=== PATIENT | female | born 1990 | race Two or more races ===

== ENCOUNTER 2020-04-02 00:13 | Emergency (ER) | payer MEDICAID, OTHER ==
[~2020-04-02] VITALS: Ht 162.6 cm; Wt 95.7 kg
[2020-04-02 01:29] LABS: Urine Bacteria NONE SEEN /hpf (None Seen); Urine Blood Negative /uL (Negative); Urine Mucus FEW (None Seen); Urine Specific Gravity 1.034 (1.001-1.035); Urine WBC 7 /hpf (0 - 5)
[2020-04-02 03:59] LABS: Basophils # (auto) 0 10 ^3/uL (0-0.2); Basophils % (auto) 0.3 % (0.0-2.0); Eosinophils # (auto) 0 10 ^3/uL (0-0.8); Eosinophils % (auto) 0.3 % (0.0-7.0); Hematocrit 41.9 % (36.0-46.0); Hemoglobin 13.8 g/dL (12.2-16.2); Lymphocytes # (auto) 0.9 10 ^3/uL (0.4-5.4); Lymphocytes % (auto) 9.9 % (10.0-50.0); Mean Corpuscular Hemoglobin 29.4 pg (28.0-32.0); Mean Corpuscular Volume 89.1 fL (80.0-100.0); Monocytes # (auto) 0.2 10 ^3/uL (0-1.3); Monocytes % (auto) 2.7 % (0.0-12.0); Neutrophils # (auto) 7.7 10 ^3/uL (1.6-8.6); Neutrophils % (auto) 86.8 % (37.0-80.0); Platelet Count (auto) 263 10^3/uL (140-450); Red Cell Distribution Width 14.6 % (11.8-14.3); White Blood Cell 8.9 10^3/uL (4.4-10.8)
[2020-04-02 04:00] VITALS: BP 93/52
[2020-04-02 04:18] LABS: Albumin 4.1 g/dL (3.4-5.0); Calcium 8.9 mg/dL (8.5-10.1); Potassium 3.9 mmol/L (3.5-5.1)
[2020-04-02 04:21] LABS: BUN/Creatinine Ratio 9.9; Bilirubin, Total 0.5 mg/dL (0.2-1.0); Total Protein 7.9 g/dL (6.4-8.2)
== END 2020-04-02 06:30 | disposition home or self-care (01) ==
LOC: ER 00:13
DX: N39.0 Urinary tract infection, site not specified (principal); Z32.02 Encounter for pregnancy test, result negative
CPT/HCPCS: 36415; 80053; 81001; 81025; 82150; 83690; 85025

== ENCOUNTER 2020-04-25 19:16 | Emergency (ER) | payer MEDICAID ==
[~2020-04-25] VITALS: Ht 162.6 cm; Wt 101.2 kg
[2020-04-25 20:16] LABS: Urine Bacteria FEW /hpf (None Seen); Urine Blood Negative /uL (Negative); Urine Mucus FEW (None Seen); Urine Specific Gravity 1.024 (1.001-1.035); Urine WBC 13 /hpf (0 - 5)
[2020-04-25 21:57] VITALS: BP 120/72
[2020-04-25] MEDS: cefTRIAXone SOD 1,000 MG VL IM ONE (23:15)
== END 2020-04-25 23:19 | disposition home or self-care (01) ==
LOC: ER 19:17
DX: N39.0 Urinary tract infection, site not specified (principal); R33.9 Retention of urine, unspecified; R10.30 Lower abdominal pain, unspecified
CPT/HCPCS: 81001; 81025; 96372; 99283; J0696

== ENCOUNTER 2020-05-13 18:07 | Emergency (ER) | payer MEDICAID ==
[~2020-05-13] VITALS: Ht 162.6 cm; Wt 95.7 kg
[2020-05-13 18:55] LABS: Basophils # (auto) 0.1 10 ^3/uL (0-0.2); Eosinophils # (auto) 0.2 10 ^3/uL (0-0.8); Eosinophils % (auto) 2.1 % (0.0-7.0); Hematocrit 44.5 % (36.0-46.0); Hemoglobin 14.9 g/dL (12.2-16.2); Lymphocytes # (auto) 2.7 10 ^3/uL (0.4-5.4); Lymphocytes % (auto) 34.5 % (10.0-50.0); Mean Corpuscular Hemoglobin 29.8 pg (28.0-32.0); Mean Corpuscular Hgb Conc. 33.5 g/dL (32.0-36.0); Mean Corpuscular Volume 88.9 fL (80.0-100.0); Monocytes # (auto) 0.7 10 ^3/uL (0-1.3); Monocytes % (auto) 8.5 % (0.0-12.0); Neutrophils # (auto) 4.3 10 ^3/uL (1.6-8.6); Neutrophils % (auto) 53.9 % (37.0-80.0); Nucleated Red Blood Cells % 0.1 %; Platelet Count (auto) 336 10^3/uL (140-450); Red Blood Cells 5.01 10^6/uL (4.0-5.20)
[2020-05-13 19:13] LABS: Alanine Aminotransferase 66 U/L (13-56); Albumin 3.7 g/dL (3.4-5.0); Alkaline Phosphatase 99 U/L (45-117); Anion Gap 4 (5-15); Aspartate Aminotransferase 26 U/L (15-37); BUN/Creatinine Ratio 15.5; Bilirubin, Total 0.2 mg/dL (0.2-1.0); Blood Urea Nitrogen 15 mg/dL (7-18); Calcium 8.5 mg/dL (8.5-10.1); Carbon Dioxide 26 mmol/L (21-32); Chloride 109 mmol/L (98-107); GFR African American 87 mL/min; GFR Non-African American 72 mL/min; Glucose 106 mg/dL (74-106); Potassium 3.9 mmol/L (3.5-5.1); Sodium 139 mmol/L (136-145); Total Protein 7.9 g/dL (6.4-8.2)
[2020-05-13] MEDS ORDERED: KETOROLAC TROMETH 60MG/2ML VIAL IM ONE (20:45)
[2020-05-13 23:20] VITALS: BP 124/56
== END 2020-05-13 23:25 | disposition home or self-care (01) ==
LOC: ER 18:08
DX: R07.89 Other chest pain (principal)
CPT/HCPCS: 36415; 71046; 80053; 84484; 85025; 93005; 96372; 99285; J1885

== ENCOUNTER 2020-06-22 02:29 | Emergency (ER) | payer MEDICAID ==
[~2020-06-22] VITALS: Ht 162.6 cm; Wt 102.5 kg
[2020-06-22 03:19] VITALS: BP 136/89
[2021-01-01] MEDS ORDERED: CHOL20007 PO (16:19)
[2021-01-01] MEDS ORDERED: QUET50TA PO (16:19)
[2021-01-01] MEDS ORDERED: NORE5TAB3 PO (16:19)
[2021-01-01] MEDS ORDERED: CITA-73 PO (16:19)
== END 2020-06-22 03:15 | disposition home or self-care (01) ==
LOC: ER 02:29
DX: N39.0 Urinary tract infection, site not specified (principal)

== ENCOUNTER 2020-07-04 06:22 | Emergency (ER) | payer MEDICAID ==
[~2020-07-04] VITALS: Ht 162.6 cm; Wt 102.1 kg
[2020-07-04 07:13] VITALS: BP 110/59
[2020-07-04 07:53] LABS: Urine Bacteria NONE SEEN /hpf (None Seen); Urine Blood Negative /uL (Negative); Urine Specific Gravity 1.011 (1.001-1.035); Urine WBC 1 /hpf (0 - 5)
[2020-07-04] MEDS ORDERED: KETOROLAC TROMETH 60MG/2ML VIAL IM ONE (08:15)
[2020-07-04] MEDS ORDERED: LORazepam 0.5 MG TAB PO ONE (08:30)
[2020-07-04] MEDS ORDERED: PHENAZOPYRIDINE HCL 100 MG TAB PO ONE (08:30)
== END 2020-07-04 08:48 | disposition home or self-care (01) ==
LOC: ER 06:22
DX: R30.0 Dysuria (principal); R10.2 Pelvic and perineal pain; F41.9 Anxiety disorder, unspecified
CPT/HCPCS: 81001; 81025; 87086; 96372; 99283; J1885

== ENCOUNTER 2020-10-12 08:49 | Emergency (ER) | payer MEDICAID ==
[~2020-10-12] VITALS: Ht 162.6 cm; Wt 104.3 kg
[2020-10-12] MEDS ORDERED: ONDANSETRON HCL 4 MG/2 ML VIAL IV ONE (09:45)
[2020-10-12] MEDS ORDERED: MORPHINE SULFATE 4 MG/ML SYR/VIAL IV ONE (09:45)
[2020-10-12] MEDS ORDERED: SODIUM CHLORIDE 0.9% 1,000 ML IVB ONE (09:45)
[2020-10-12 10:04] LABS: Albumin 3.6 g/dL (3.4-5.0); Calcium 9.2 mg/dL (8.5-10.1); Potassium 3.9 mmol/L (3.5-5.1)
[2020-10-12 10:08] LABS: BUN/Creatinine Ratio 13.4; Bilirubin, Total 0.4 mg/dL (0.2-1.0); Total Protein 7.7 g/dL (6.4-8.2)
[2020-10-12 10:39] LABS: Basophils # (auto) 0 10 ^3/uL (0-0.2); Basophils % (auto) 0.7 % (0.0-2.0); Eosinophils # (auto) 0.1 10 ^3/uL (0-0.8); Hematocrit 41.9 % (36.0-46.0); Lymphocytes # (auto) 1.6 10 ^3/uL (0.4-5.4); Lymphocytes % (auto) 22.7 % (10.0-50.0); Mean Corpuscular Hemoglobin 29.5 pg (28.0-32.0); Mean Corpuscular Hgb Conc. 33.4 g/dL (32.0-36.0); Mean Corpuscular Volume 88.3 fL (80.0-100.0); Monocytes # (auto) 0.5 10 ^3/uL (0-1.3); Monocytes % (auto) 7.1 % (0.0-12.0); Neutrophils # (auto) 4.7 10 ^3/uL (1.6-8.6); Neutrophils % (auto) 67.5 % (37.0-80.0); Nucleated Red Blood Cells % 0.1 %; Platelet Count (auto) 299 10^3/uL (140-450); Red Blood Cells 4.74 10^6/uL (4.0-5.20); Red Cell Distribution Width 14.2 % (11.8-14.3); White Blood Cell 6.9 10^3/uL (4.4-10.8)
[2020-10-12 10:55] LABS: Urine Specific Gravity 1.008 (1.001-1.035)
[2020-10-12 10:56] LABS: Urine Blood Normal /uL (Negative); Urine WBC 31 /hpf (0 - 5)
[2020-10-12 10:57] LABS: Urine Bacteria FEW /hpf (None Seen); Urine Hyaline Cast FEW /lpf (0 - 2)
[2020-10-12] MEDS ORDERED: cefTRIAXone 1GM/50ML D5W 50 ML IV ONE ×2 (11:39→11:45)
[2020-10-12] MEDS ORDERED: SODIUM CHLORIDE 0.9% 1,000 ML IV ONE (11:45)
[2020-10-12 13:15] VITALS: BP 102/50
== END 2020-10-12 13:39 | disposition home or self-care (01) ==
LOC: ER 08:49
DX: N39.0 Urinary tract infection, site not specified (principal); I88.0 Nonspecific mesenteric lymphadenitis; Z32.02 Encounter for pregnancy test, result negative
CPT/HCPCS: 36415; 74176; 80053; 81001; 81025; 83690; 85025; 96361; 96365; 96366; 96375; 99284; J0696; J2270; J2405; J7030

== ENCOUNTER 2021-01-04 12:10 | Day surgery (SDC) | payer MEDICAID ==
[2021-01-01 13:30] LABS: Basophils # (auto) 0.1 10 ^3/uL (0-0.2); Basophils % (auto) 0.9 % (0.0-2.0); Eosinophils # (auto) 0.1 10 ^3/uL (0-0.8); Eosinophils % (auto) 1.6 % (0.0-7.0); Hematocrit 41.5 % (36.0-46.0); Hemoglobin 14.1 g/dL (12.2-16.2); Lymphocytes # (auto) 2.3 10 ^3/uL (0.4-5.4); Lymphocytes % (auto) 31.5 % (10.0-50.0); Mean Corpuscular Hemoglobin 29.4 pg (28.0-32.0); Mean Corpuscular Volume 86.6 fL (80.0-100.0); Monocytes # (auto) 0.5 10 ^3/uL (0-1.3); Monocytes % (auto) 6.5 % (0.0-12.0); Neutrophils # (auto) 4.3 10 ^3/uL (1.6-8.6); Neutrophils % (auto) 59.5 % (37.0-80.0); Red Blood Cells 4.79 10^6/uL (4.0-5.20); Red Cell Distribution Width 14.4 % (11.8-14.3); White Blood Cell 7.2 10^3/uL (4.4-10.8)
[2021-01-01 13:44] LABS: Urine Bacteria FEW /hpf (None Seen); Urine Blood Negative /uL (Negative); Urine Specific Gravity 1.015 (1.001-1.035); Urine WBC 2 /hpf (0 - 5)
[2021-01-01 14:12] LABS: Potassium 4.5 mmol/L (3.5-5.1)
[2021-01-01 14:28] LABS: Albumin 3.7 g/dL (3.4-5.0); BUN/Creatinine Ratio 14.9; Bilirubin, Total 0.2 mg/dL (0.2-1.0); Calcium 9.7 mg/dL (8.5-10.1)
[~2021-01-04] VITALS: Ht 162.6 cm; Wt 104.3 kg
[~2021-01-04 12:10] MED LIST: CHOL20007 PO; CITA-73 PO; NORE5TAB3 PO; QUET50TA PO
[2021-01-04] MEDS: fentaNYL CITRATE 100 MCG/2 ML VL ONE ×2 (14:35→14:41)
[2021-01-04] MEDS: MIDAZOLAM HCL 5 MG/ML-1ML VIAL ONE ×3 (14:35→14:51)
[2021-01-04] MEDS: diphenhdrAMINE HCL 50 MG/1 ML VL ONE ×2 (14:41→14:45)
[2021-01-04 15:35] VITALS: BP 104/66
== END 2021-01-04 15:45 | disposition home or self-care (01) ==
LOC: GI 12:10
PROVIDERS: ATTEND Internal Medicine Gastroenterology
DX: R10.30 Lower abdominal pain, unspecified (principal); K64.8 Other hemorrhoids; K63.89 Other specified diseases of intestine; F32.9 Major depressive disorder, single episode, unspecified; F41.9 Anxiety disorder, unspecified; F99 Mental disorder, not otherwise specified; Z20.822 Contact with and (suspected) exposure to COVID-19; Z98.890 Other specified postprocedural states; Z79.899 Other long term (current) drug therapy; Z68.39 Body mass index [BMI] 39.0-39.9, adult
CPT/HCPCS: 36415; 45378; 80053; 81001; 81025; 84702; 85025; J1200; J2250; J3010; J7030; U0003; 99152; 99153